=== PATIENT | female | born 1960 | race Two or more races ===

== ENCOUNTER 2019-12-08 19:04 | Inpatient (IN) | payer MEDICAID, OTHER ==
[~2019-12-08] VITALS: Ht 165.1 cm; Wt 92.1 kg
[2019-12-08 21:43] LABS: Basophils # (auto) 0.1 10 ^3/uL (0-0.2); Eosinophils # (auto) 0.1 10 ^3/uL (0-0.8); Eosinophils % (auto) 0.6 % (0.0-7.0); Monocytes # (auto) 0.8 10 ^3/uL (0-1.3)
[2019-12-08 21:45] LABS: Hematocrit 19.4 % (36.0-46.0); Lymphocytes # (auto) 1.8 10 ^3/uL (0.4-5.4); Lymphocytes % (auto) 18.5 % (10.0-50.0); Mean Corpuscular Hemoglobin 20.6 pg (28.0-32.0); Mean Corpuscular Hgb Conc. 29.9 g/dL (32.0-36.0); Monocytes % (auto) 8.7 % (0.0-12.0); Neutrophils # (auto) 6.9 10 ^3/uL (1.6-8.6); Neutrophils % (auto) 71.2 % (37.0-80.0); Platelet Count (auto) 313 10^3/uL (140-450); Red Blood Cells 2.82 10^6/uL (4.0-5.20); White Blood Cell 9.7 10^3/uL (4.4-10.8)
[2019-12-08 21:56] LABS: Red Cell Distribution Width 20.3 % (11.8-14.3)
[2019-12-08 21:59] LABS: Hemoglobin 5.8 g/dL (12.2-16.2); INR 1.56 (0.9-1.15); Partial Thromboplastin Time 27.1 sec (23.0-31.2)
[2019-12-08 22:05] LABS: Alanine Aminotransferase 10 U/L (13-56); Amylase 57 U/L (25-115); Anion Gap 8 (5-15); Aspartate Aminotransferase 44 U/L (15-37); Blood Urea Nitrogen 5 mg/dL (7-18); Calcium 7.9 mg/dL (8.5-10.1); Carbon Dioxide 28 mmol/L (21-32); Chloride 85 mmol/L (98-107); GFR African American 164 mL/min; GFR Non-African American 135 mL/min; Glucose 121 mg/dL (74-106); Lipase 273 U/L (73-393); Magnesium 1.9 mg/dL (1.6-2.6); Potassium 3.2 mmol/L (3.5-5.1); Sodium 121 mmol/L (136-145)
[2019-12-08 22:11] LABS: Alkaline Phosphatase 92 U/L (45-117); Bilirubin, Total 2.6 mg/dL (0.2-1.0)
[2019-12-08 22:25] LABS: Albumin 0.9 g/dL (3.4-5.0)
[2019-12-08] MEDS ORDERED: FUROSEMIDE 40 MG/4 ML VIAL IV ONE (22:30)
[2019-12-08] MEDS ORDERED: SPIRONOLACTONE 25 MG TAB PO ONE (22:30)
[2019-12-09] VITALS (8 sets, daily range): BP systolic 94–136; BP diastolic 43–84
[2019-12-09 01:50] LABS: Urine Bacteria FEW /hpf (None Seen); Urine Blood Negative /uL (Negative); Urine Mucus FEW (None Seen); Urine Specific Gravity 1.016 (1.001-1.035); Urine WBC 2 /hpf (0 - 5)
[2019-12-09] MEDS ORDERED: ALBUTEROL SULF 2.5 MG/0.5ML(0.5%) NEB SOLN NEB PRN (03:45)
[2019-12-09] MEDS ORDERED: SODIUM CHLORIDE 0.9% 1,000 ML IV SCH (03:45)
[2019-12-09] MEDS ORDERED: NITROGLYCERIN 0.4 MG SL TAB SL PRN (03:45)
[2019-12-09] MEDS ORDERED: MORPHINE SULF INJ 2 MG/ML SYRINGE 1ML IV PRN (03:45)
[2019-12-09] MEDS: cefTRIAXone 1GM/50ML D5W 50 ML IV SCH (05:55)
[2019-12-09] MEDS: AZITHROMYCIN 500MG/ 250ML 250 ML IV SCH (06:10)
[2019-12-09] MEDS ORDERED: PNEUMOCOCCAL VACC POLYS 25 MCG/0.5 ML VIAL IM ONE (06:45)
[2019-12-09] MEDS ORDERED: PHYTONADIONE (VIT K)10 MG/ML 1ML VIAL SUBCUT ONE (09:00)
[2019-12-09] MEDS ORDERED: METOCLOPRAMIDE HCL 5MG/ml INJ 2ml VIAL IV PRN (09:00)
[2019-12-09] MEDS ORDERED: ACETAMINOPHEN 500 MG TAB PO PRN (09:00)
[2019-12-09 09:43] LABS: Basophils # (auto) 0.1 10 ^3/uL (0-0.2); Eosinophils # (auto) 0 10 ^3/uL (0-0.8); Hematocrit 23.3 % (36.0-46.0); Hemoglobin 7.3 g/dL (12.2-16.2); Lymphocytes # (auto) 1.6 10 ^3/uL (0.4-5.4); Monocytes # (auto) 0.7 10 ^3/uL (0-1.3)
[2019-12-09 09:45] LABS: Basophils % (auto) 0.9 % (0.0-2.0); Eosinophils % (auto) 0.6 % (0.0-7.0); Lymphocytes % (auto) 19.2 % (10.0-50.0); Mean Corpuscular Hemoglobin 23.3 pg (28.0-32.0); Mean Corpuscular Hgb Conc. 31.6 g/dL (32.0-36.0); Mean Corpuscular Volume 73.9 fL (80.0-100.0); Neutrophils # (auto) 5.8 10 ^3/uL (1.6-8.6); Neutrophils % (auto) 70.3 % (37.0-80.0); Nucleated Red Blood Cells % 0.1 %; Platelet Count (auto) 264 10^3/uL (140-450); Red Blood Cells 3.15 10^6/uL (4.0-5.20); White Blood Cell 8.3 10^3/uL (4.4-10.8)
[2019-12-09 09:54] LABS: Red Cell Distribution Width 24.4 % (11.8-14.3)
[2019-12-09 09:57] LABS: Albumin 1.9 g/dL (3.4-5.0); Calcium 8.1 mg/dL (8.5-10.1); Potassium 3.2 mmol/L (3.5-5.1)
[2019-12-09 10:00] LABS: BUN/Creatinine Ratio 10.2
[2019-12-09 10:02] LABS: Bilirubin, Total 4.2 mg/dL (0.2-1.0); Total Protein 6.5 g/dL (6.4-8.2)
[2019-12-09] MEDS: PANTOPRAZOLE 40 MG/10 ML VIAL INJ IV SCH ×2 (11:01→22:26)
[2019-12-09] MEDS: D5W/LACTATED RINGERS 1,000 ML IV SCH ×2 (11:02→17:55)
[2019-12-09] MEDS ORDERED: FUROSEMIDE 20 MG/2 ML VIAL IV ONE (13:00)
[2019-12-09] MEDS ORDERED: ALBUMIN 25% 50 ML IV SCH (14:15)
[2019-12-09] MEDS ORDERED: POTASSIUM EFFERVESENT TAB 25 MEQ PO ONE (16:00)
[2019-12-09] MEDS: ALBUMIN 25% 50 ML IV SCH (16:46)
[2019-12-09] MEDS ORDERED: IOHEXOL 300 MG/ML 100ML BOTTLE IJ ONE (18:06)
[2019-12-09] MEDS: SODIUM FERR GLUC 62.5MG/5ML 125 MG in SODIUM CHL 0.9% 100 ML IV SCH (19:49)
[2019-12-10] MEDS: ALBUMIN 25% 50 ML IV SCH ×2 (00:45→08:39)
[2019-12-10 05:11] VITALS: BP 91/52
[2019-12-10 06:00] LABS: Eosinophils # (auto) 0.1 10 ^3/uL (0-0.8); Hemoglobin 7.1 g/dL (12.2-16.2); Lymphocytes # (auto) 1.5 10 ^3/uL (0.4-5.4); Neutrophils # (auto) 4.4 10 ^3/uL (1.6-8.6); Nucleated Red Blood Cells % 0.1 %
[2019-12-10 06:02] LABS: Basophils # (auto) 0 10 ^3/uL (0-0.2); Basophils % (auto) 0.7 % (0.0-2.0); Eosinophils % (auto) 1.2 % (0.0-7.0); Hematocrit 22.7 % (36.0-46.0); Lymphocytes % (auto) 21.6 % (10.0-50.0); Mean Corpuscular Hgb Conc. 31.2 g/dL (32.0-36.0); Mean Corpuscular Volume 73.7 fL (80.0-100.0); Monocytes # (auto) 0.7 10 ^3/uL (0-1.3); Neutrophils % (auto) 65.5 % (37.0-80.0); Platelet Count (auto) 247 10^3/uL (140-450); Red Blood Cells 3.08 10^6/uL (4.0-5.20); White Blood Cell 6.7 10^3/uL (4.4-10.8)
[2019-12-10 06:13] LABS: INR 1.56 (0.9-1.15); Partial Thromboplastin Time 32.2 sec (23.0-31.2)
[2019-12-10 06:15] LABS: Potassium 3.4 mmol/L (3.5-5.1)
[2019-12-10 06:21] LABS: BUN/Creatinine Ratio 10.9; Bilirubin, Total 2.7 mg/dL (0.2-1.0)
[2019-12-10 06:24] LABS: Red Cell Distribution Width 24.7 % (11.8-14.3)
[2019-12-10] MEDS: cefTRIAXone 1GM/50ML D5W 50 ML IV SCH (08:40)
[2019-12-10] MEDS: PANTOPRAZOLE 40 MG/10 ML VIAL INJ IV SCH (08:40)
[2019-12-10] MEDS: AZITHROMYCIN 500MG/ 250ML 250 ML IV SCH (08:40)
[2019-12-10 09:00] VITALS: BP_SYST 133; BP_SYST 99; BP_DIAS 53; BP_DIAS 58
[2019-12-10] MEDS ORDERED: PANT40TA2 PO (10:06)
[2019-12-10] MEDS ORDERED: SPIR25TA88 PO (10:06)
[2019-12-10] MEDS ORDERED: FERR-7 PO (10:06)
[2019-12-10 10:30] VITALS: BP 102/60
[2019-12-10] MEDS: SODIUM FERR GLUC 62.5MG/5ML 125 MG in SODIUM CHL 0.9% 100 ML IV SCH (12:00)
[2019-12-10 13:00] VITALS: BP 106/56
== END 2019-12-10 15:05 | disposition home or self-care (01) | DRG 280 ==
LOC: ER 19:04 → EDBD 19:04 → TELE 19:05 → TELE-EAST 12-09 05:10 → TELE-WESTW 12-09 14:04
PROVIDERS: ADMIT Hospitalist; ATTEND Hospitalist
PROC: 0W9G3ZZ Drainage of Peritoneal Cavity, Percutaneous Approach (ICD-10-PCS; principal; 2019-12-09)
PROC: 30233N1 Transfusion of Nonautologous Red Blood Cells into Peripheral Vein, Percutaneous Approach (ICD-10-PCS; 2019-12-09)
DX: K70.31 Alcoholic cirrhosis of liver with ascites (principal); F10.20 Alcohol dependence, uncomplicated; E87.1 Hypo-osmolality and hyponatremia; E66.9 Obesity, unspecified; E87.6 Hypokalemia; K57.30 Diverticulosis of large intestine without perforation or abscess without bleeding; D63.8 Anemia in other chronic diseases classified elsewhere; Z20.828 Contact with and (suspected) exposure to other viral communicable diseases; Z71.3 Dietary counseling and surveillance; E43 Unspecified severe protein-calorie malnutrition; J18.9 Pneumonia, unspecified organism; I50.43 Acute on chronic combined systolic (congestive) and diastolic (congestive) heart failure; Z68.37 Body mass index [BMI] 37.0-37.9, adult
CPT/HCPCS: 10022; 36415; 71045; 74176; 74178; 76700; 76942; 80053; 81001; 82140; 82150; 83605; 83690; 83735; 83880; 83986; 84484; 85025; 85379; 85610; 85730; 86850; 86900; 86901; 86920; 87040; 87070; 87205; 87426; 87804; 87880; 89051; 93005; C9113; G0378; J0696; J3430

== ENCOUNTER → 2019-12-28 | Emergency (ER) | payer MEDICAID ==
[~2019-12-28] VITALS: Ht 165.1 cm; Wt 74.8 kg
[~2019-12-28] MED LIST: FERR-7 PO; PANT40TA2 PO; POTASSIUM CHL 20 Meq TABLET PO ONE; SPIR25TA88 PO
[2019-12-28 11:01] LABS: Basophils # (auto) 0.1 10 ^3/uL (0-0.2); Eosinophils % (auto) 0.9 % (0.0-7.0); Monocytes # (auto) 0.6 10 ^3/uL (0-1.3)
[2019-12-28 11:03] LABS: Basophils % (auto) 1.4 % (0.0-2.0); Eosinophils # (auto) 0 10 ^3/uL (0-0.8); Hematocrit 28.8 % (36.0-46.0); Hemoglobin 9.1 g/dL (12.2-16.2); Lymphocytes # (auto) 1.7 10 ^3/uL (0.4-5.4); Lymphocytes % (auto) 30.9 % (10.0-50.0); Mean Corpuscular Hemoglobin 24.6 pg (28.0-32.0); Mean Corpuscular Hgb Conc. 31.8 g/dL (32.0-36.0); Mean Corpuscular Volume 77.5 fL (80.0-100.0); Monocytes % (auto) 11.2 % (0.0-12.0); Neutrophils # (auto) 3.1 10 ^3/uL (1.6-8.6); Neutrophils % (auto) 55.6 % (37.0-80.0); Nucleated Red Blood Cells % 0.1 %; Platelet Count (auto) 307 10^3/uL (140-450); Red Blood Cells 3.72 10^6/uL (4.0-5.20); White Blood Cell 5.5 10^3/uL (4.4-10.8)
[2019-12-28 11:12] LABS: Red Cell Distribution Width 25.1 % (11.8-14.3)
[2019-12-28 11:13] LABS: Albumin 2.1 g/dL (3.4-5.0); Calcium 8.2 mg/dL (8.5-10.1); Potassium 3.2 mmol/L (3.5-5.1)
[2019-12-28 11:16] LABS: BUN/Creatinine Ratio 7.7; Bilirubin, Total 2.1 mg/dL (0.2-1.0); Total Protein 7.5 g/dL (6.4-8.2)
[2019-12-28 11:28] LABS: INR 1.56 (0.9-1.15); Partial Thromboplastin Time 30.5 sec (23.0-31.2)
--- NOTE | 2019-12-28 13:41 | NUR ---
PT IN ULTRASOUND FOR A PARACENTESIS BY DR HARDIN. VS 134/04-891-04-99%. 1355: 134/88-086-68-95% 1410: 116/13-338-72-955.1425: 125/81-013-97-96%.1430: FINISHED WITH PROCEDURE. PT TOLERATED WELL. 10,900 ML OF FLUID REMOVED.
[2019-12-28 15:00] VITALS: BP 119/69
== END | disposition home or self-care (01) ==
LOC: EDUNIT# 10:25 → EDBD 10:32 → ER 10:32
DX: R18.8 Other ascites (principal); E11.9 Type 2 diabetes mellitus without complications; F17.210 Nicotine dependence, cigarettes, uncomplicated; Z79.899 Other long term (current) drug therapy
CPT/HCPCS: 36415; 49083; 76700; 76942; 80053; 85025; 85610; 85730; 99285; C1729; 10022; 49082

== ENCOUNTER 2020-01-12 11:04 | Emergency (ER) | payer MEDICAID ==
[~2020-01-12] VITALS: Ht 165.1 cm; Wt 83.5 kg
[~2020-01-12 11:04] MED LIST changes: -POTASSIUM CHL 20 Meq TABLET PO ONE
[2020-01-12 11:45] LABS: Basophils # (auto) 0.1 10 ^3/uL (0-0.2); Eosinophils # (auto) 0.1 10 ^3/uL (0-0.8); Eosinophils % (auto) 1.1 % (0.0-7.0); Monocytes # (auto) 0.5 10 ^3/uL (0-1.3); Nucleated Red Blood Cells % 0.1 %; White Blood Cell 5.4 10^3/uL (4.4-10.8)
[2020-01-12 11:47] LABS: Basophils % (auto) 1.3 % (0.0-2.0); Hematocrit 31.6 % (36.0-46.0); Hemoglobin 10.1 g/dL (12.2-16.2); Lymphocytes # (auto) 1.7 10 ^3/uL (0.4-5.4); Lymphocytes % (auto) 31.5 % (10.0-50.0); Mean Corpuscular Hemoglobin 24.4 pg (28.0-32.0); Mean Corpuscular Hgb Conc. 31.9 g/dL (32.0-36.0); Mean Corpuscular Volume 76.7 fL (80.0-100.0); Monocytes % (auto) 9.9 % (0.0-12.0); Neutrophils % (auto) 56.2 % (37.0-80.0); Platelet Count (auto) 252 10^3/uL (140-450); Red Blood Cells 4.12 10^6/uL (4.0-5.20); Red Cell Distribution Width 22.4 % (11.8-14.3)
[2020-01-12 12:12] LABS: Albumin 2.1 g/dL (3.4-5.0); Calcium 8.5 mg/dL (8.5-10.1); Potassium 3.4 mmol/L (3.5-5.1)
[2020-01-12 12:15] LABS: BUN/Creatinine Ratio 9.8; Bilirubin, Total 1.6 mg/dL (0.2-1.0); Total Protein 7.6 g/dL (6.4-8.2)
[2020-01-12 15:49] LABS: INR 1.37 (0.9-1.15); Partial Thromboplastin Time 29.9 sec (23.0-31.2)
[2020-01-12 20:00] VITALS: BP 98/58
== END 2020-01-12 21:00 | disposition home or self-care (01) ==
LOC: ER 11:04
DX: K70.31 Alcoholic cirrhosis of liver with ascites (principal); F17.210 Nicotine dependence, cigarettes, uncomplicated; D50.0 Iron deficiency anemia secondary to blood loss (chronic); I10 Essential (primary) hypertension; Z79.899 Other long term (current) drug therapy
CPT/HCPCS: 36415; 49083; 76700; 80053; 85025; 85610; 85730; 93005

== ENCOUNTER 2020-01-24 09:55 | Emergency (ER) | payer MEDICAID ==
[~2020-01-24] VITALS: Ht 165.1 cm; Wt 74.8 kg
[2020-01-24 10:40] LABS: Basophils # (auto) 0.1 10 ^3/uL (0-0.2); Eosinophils # (auto) 0 10 ^3/uL (0-0.8); Hemoglobin 9.6 g/dL (12.2-16.2); Mean Corpuscular Hemoglobin 24.4 pg (28.0-32.0); Monocytes # (auto) 0.4 10 ^3/uL (0-1.3)
[2020-01-24 10:42] LABS: Basophils % (auto) 1.9 % (0.0-2.0); Eosinophils % (auto) 0.9 % (0.0-7.0); Hematocrit 30.1 % (36.0-46.0); Lymphocytes # (auto) 1.3 10 ^3/uL (0.4-5.4); Lymphocytes % (auto) 30.9 % (10.0-50.0); Mean Corpuscular Volume 76.2 fL (80.0-100.0); Monocytes % (auto) 9.7 % (0.0-12.0); Neutrophils # (auto) 2.3 10 ^3/uL (1.6-8.6); Neutrophils % (auto) 56.6 % (37.0-80.0); Nucleated Red Blood Cells % 0.2 %; Platelet Count (auto) 286 10^3/uL (140-450); Red Blood Cells 3.95 10^6/uL (4.0-5.20); White Blood Cell 4.1 10^3/uL (4.4-10.8)
[2020-01-24 10:46] LABS: Red Cell Distribution Width 20.5 % (11.8-14.3)
[2020-01-24 11:02] LABS: Potassium 4.1 mmol/L (3.5-5.1)
[2020-01-24 11:08] LABS: BUN/Creatinine Ratio 10.9; Bilirubin, Total 1.1 mg/dL (0.2-1.0); Calcium 8.6 mg/dL (8.5-10.1); Total Protein 7.3 g/dL (6.4-8.2)
[2020-01-24] MEDS ORDERED: FUROSEMIDE 40 MG/4 ML VIAL IV ONE (13:00)
[2020-01-24 15:29] VITALS: BP 113/70
== END 2020-01-24 18:23 | disposition home or self-care (01) ==
LOC: ER 09:55
DX: R18.8 Other ascites (principal); E43 Unspecified severe protein-calorie malnutrition; D64.9 Anemia, unspecified
CPT/HCPCS: 36415; 49083; 71045; 76700; 76942; 80053; 85025; 96374; 99285; J1940; 10022

== ENCOUNTER → 2020-02-08 | Outpatient (CLI) | payer MEDICAID ==
[2020-02-08 13:11] LABS: Basophils # (auto) 0.1 10 ^3/uL (0-0.2); Eosinophils # (auto) 0.1 10 ^3/uL (0-0.8); Eosinophils % (auto) 1.1 % (0.0-7.0); Hemoglobin 9.3 g/dL (12.2-16.2); Monocytes # (auto) 0.5 10 ^3/uL (0-1.3); Neutrophils # (auto) 2.9 10 ^3/uL (1.6-8.6)
[2020-02-08 13:13] LABS: Basophils % (auto) 2.1 % (0.0-2.0); Hematocrit 29.1 % (36.0-46.0); Lymphocytes # (auto) 1.7 10 ^3/uL (0.4-5.4); Lymphocytes % (auto) 32.4 % (10.0-50.0); Mean Corpuscular Hgb Conc. 31.9 g/dL (32.0-36.0); Mean Corpuscular Volume 75.4 fL (80.0-100.0); Monocytes % (auto) 9.6 % (0.0-12.0); Neutrophils % (auto) 54.8 % (37.0-80.0); Platelet Count (auto) 307 10^3/uL (140-450); Red Blood Cells 3.85 10^6/uL (4.0-5.20); White Blood Cell 5.4 10^3/uL (4.4-10.8)
[2020-02-08 13:20] LABS: Albumin 1.9 g/dL (3.4-5.0); Calcium 8.1 mg/dL (8.5-10.1); Potassium 3.5 mmol/L (3.5-5.1)
[2020-02-08 13:23] LABS: BUN/Creatinine Ratio 8.3; Bilirubin, Total 0.8 mg/dL (0.2-1.0); Total Protein 7.4 g/dL (6.4-8.2)
[2020-02-08 13:26] LABS: INR 1.35 (0.9-1.15)
== END | disposition home or self-care (01) ==
LOC: LAB 12:31
PROVIDERS: ATTEND Internal Medicine Gastroenterology
DX: K74.60 Unspecified cirrhosis of liver (principal); R18.8 Other ascites
CPT/HCPCS: 36415; 80053; 82105; 82140; 85025; 85610

== ENCOUNTER 2020-02-11 09:36 | Emergency (ER) | payer MEDICAID ==
[~2020-02-11] VITALS: Ht 165.1 cm; Wt 74.4 kg
[2020-02-11 10:40] LABS: Basophils # (auto) 0.1 10 ^3/uL (0-0.2); Eosinophils # (auto) 0 10 ^3/uL (0-0.8); Lymphocytes # (auto) 1.7 10 ^3/uL (0.4-5.4); Monocytes # (auto) 0.4 10 ^3/uL (0-1.3); White Blood Cell 4.6 10^3/uL (4.4-10.8)
[2020-02-11 10:42] LABS: Basophils % (auto) 1.6 % (0.0-2.0); Eosinophils % (auto) 0.9 % (0.0-7.0); Hemoglobin 9.7 g/dL (12.2-16.2); Lymphocytes % (auto) 37.7 % (10.0-50.0); Mean Corpuscular Hemoglobin 24.3 pg (28.0-32.0); Mean Corpuscular Hgb Conc. 32.2 g/dL (32.0-36.0); Mean Corpuscular Volume 75.6 fL (80.0-100.0); Monocytes % (auto) 8.8 % (0.0-12.0); Neutrophils # (auto) 2.3 10 ^3/uL (1.6-8.6); Nucleated Red Blood Cells % 0.2 %; Platelet Count (auto) 303 10^3/uL (140-450); Red Blood Cells 3.97 10^6/uL (4.0-5.20)
[2020-02-11 11:00] LABS: Alanine Aminotransferase 10 U/L (13-56); Amylase 45 U/L (25-115); Anion Gap 8 (5-15); Blood Urea Nitrogen 5 mg/dL (7-18); Calcium 8.3 mg/dL (8.5-10.1); Carbon Dioxide 26 mmol/L (21-32); Chloride 102 mmol/L (98-107); Glucose 110 mg/dL (74-106); Lipase 215 U/L (73-393); Magnesium 2.2 mg/dL (1.6-2.6); Potassium 3.4 mmol/L (3.5-5.1); Sodium 136 mmol/L (136-145)
[2020-02-11 11:06] LABS: Alkaline Phosphatase 117 U/L (45-117); Aspartate Aminotransferase 24 U/L (15-37); BUN/Creatinine Ratio 8.5; Bilirubin, Total 0.8 mg/dL (0.2-1.0); GFR African American 135 mL/min; GFR Non-African American 112 mL/min; Total Protein 7.2 g/dL (6.4-8.2)
[2020-02-11 13:04] LABS: INR 1.33 (0.9-1.15); Partial Thromboplastin Time 28.3 sec (23.0-31.2)
[2020-02-11] MEDS ORDERED: POTASSIUM EFFERVESENT TAB 25 MEQ PO ONE (15:30)
[2020-02-11 16:00] VITALS: BP 103/59
== END 2020-02-11 16:30 | disposition home or self-care (01) ==
LOC: ER 09:36
DX: R18.8 Other ascites (principal); E87.6 Hypokalemia; I10 Essential (primary) hypertension; F17.210 Nicotine dependence, cigarettes, uncomplicated
CPT/HCPCS: 36415; 49083; 76700; 76942; 80053; 82150; 83690; 83735; 84484; 85025; 85610; 85730; 93005

== ENCOUNTER 2020-02-29 10:39 | Emergency (ER) | payer MEDICAID ==
[~2020-02-29] VITALS: Ht 165.1 cm; Wt 74.4 kg
[2020-02-29 11:20] LABS: Basophils # (auto) 0.1 10 ^3/uL (0-0.2); Basophils % (auto) 1.4 % (0.0-2.0); Eosinophils # (auto) 0 10 ^3/uL (0-0.8); Eosinophils % (auto) 0.8 % (0.0-7.0); Hematocrit 33.8 % (36.0-46.0); Lymphocytes # (auto) 1.5 10 ^3/uL (0.4-5.4); Lymphocytes % (auto) 32.3 % (10.0-50.0); Mean Corpuscular Hemoglobin 24.9 pg (28.0-32.0); Mean Corpuscular Hgb Conc. 32.4 g/dL (32.0-36.0); Mean Corpuscular Volume 76.8 fL (80.0-100.0); Monocytes # (auto) 0.4 10 ^3/uL (0-1.3); Monocytes % (auto) 8.1 % (0.0-12.0); Neutrophils # (auto) 2.7 10 ^3/uL (1.6-8.6); Neutrophils % (auto) 57.4 % (37.0-80.0); Platelet Count (auto) 279 10^3/uL (140-450); Red Cell Distribution Width 20.1 % (11.8-14.3); White Blood Cell 4.8 10^3/uL (4.4-10.8)
[2020-02-29 11:34] LABS: INR 1.37 (0.9-1.15); Partial Thromboplastin Time 28.5 sec (23.0-31.2)
[2020-02-29 11:43] LABS: BUN/Creatinine Ratio 8.3; Bilirubin, Total 1.1 mg/dL (0.2-1.0); Calcium 8.4 mg/dL (8.5-10.1); Potassium 3.6 mmol/L (3.5-5.1); Total Protein 7.8 g/dL (6.4-8.2)
[2020-02-29] MEDS ORDERED: LIDOCAINE 2% (LOCAL ANESTH.) PF 5ml SDV ONE (15:11)
[2020-02-29 16:35] VITALS: BP 116/74
== END 2020-02-29 16:39 | disposition home or self-care (01) ==
LOC: ER 10:39
DX: R18.8 Other ascites (principal); F17.210 Nicotine dependence, cigarettes, uncomplicated; I10 Essential (primary) hypertension; Z79.899 Other long term (current) drug therapy
CPT/HCPCS: 36415; 49083; 76942; 80053; 85025; 85610; 85730; 99285; C1729; J2001; 10022